=== PATIENT | male | born 1980 | race American Indian/Alaskan Native ===

== ENCOUNTER 2018-12-06 17:14 | Emergency (ER) | payer SELFPAY ==
[2018-12-06 17:33] VITALS: TEMP 97.5
[2018-12-06 18:04] VITALS: O2SAT 95
--- NOTE | 2018-12-06 19:06 | C.PDOC ---
History Of Present Illness 38 y/o M BIBEMS with intoxication. Full HPI/ROS unobtainable due to clinical condition. Patient sleeping. Time Seen by Provider: 12/06/18 17:39 Chief Complaint (Nursing): Substance Abuse Past Medical History Vital Signs: Last Vital Signs Temp 97.5 F L 12/06/18 17:21 Pulse 79 12/06/18 18:03 Resp 10 L 12/06/18 18:03 BP 110/74 12/06/18 17:21 Pulse Ox 95 12/06/18 18:03 Primary Care Provider: FAMILY PROVIDER,NO Family History: States: Unknown Family Hx - Social History Hx Alcohol Use: Yes Hx Substance Use: Yes - Immunization History Hx Tetanus Toxoid Vaccination: No Hx Influenza Vaccination: No Hx Pneumococcal Vaccination: No Review Of Systems Review Of Systems: ROS cannot be obtained secondary to pt's inabilty to answer questions. Physical Exam - Physical Exam Additional Physical Exam Comments: gen drowsy head nc/at eyes constricted ent mmm neck supple cv reg rate lungs breathing spontaneously abd soft, nt extremities no deformity skin no rash neuro drowsy ED Course And Treatment O2 Sat by Pulse Oximetry: 95 Medical Decision Making Medical Decision Making: presumed opioid overdose. on tele monitor, patient with normal pulse oximetry and breathing spontaneously. Patient awoke, alert, responds normally. Will observe. Patient eloped after 2 hours and 20 minutes. Disposition - Disposition Disposition: ELOPEMENT - ER ONLY Disposition Time: 19:36 Condition: STABLE Forms: [facility] (Turkish) - Clinical Impression Clinical Impression: Intoxication
[2018-12-06 19:28] LABS: BARBITURATES, UR NEGATIVE (NEGATIVE); OPIATES, UR NEGATIVE (NEGATIVE)
[2018-12-06 19:46] LABS: BENZODIAZEPINES, UR NEGATIVE (NEGATIVE)
[2018-12-06 19:52] LABS: PHENCYCLIDINE, UR POSITIVE (NEGATIVE)
[2018-12-06 21:13] VITALS: BP 110/78; PULSE 88; RESP 20
== END 2018-12-06 20:00 | disposition left against medical advice (07) ==
LOC: C.ER 17:14
DX: F19.129 Other psychoactive substance abuse with intoxication, unspecified (principal)
CPT/HCPCS: 82948; 99285; G0480